=== PATIENT | male | born 1935 | race Caucasian/White ===

== ENCOUNTER 2019-04-17 04:55 | Inpatient (IN) | payer OTHER ==
[~2019-04-17] VITALS: Ht 177.8 cm; Wt 74.4 kg
[2019-04-17 05:01] VITALS: BP_SYST 136
[2019-04-17] MEDS ORDERED: PANT20TA2 PO (05:17)
[2019-04-17] MEDS ORDERED: OMEP20CA10 PO (05:17)
[2019-04-17] MEDS ORDERED: HYDR-4273 PO (05:17)
[2019-04-17] MEDS ORDERED: TRAM-350 PO (05:17)
[2019-04-17] MEDS ORDERED: TAMS-11 PO (05:17)
[2019-04-17] MEDS ORDERED: NEU300 PO (05:17)
[2019-04-17] MEDS ORDERED: INSNLG7030 SUBCUT (05:17)
[2019-04-17 06:07] LABS: BASOPHILS # (AUTO) 0.1 K/uL (0.0-0.2); BASOPHILS % (AUTO) 0.6 % (0.0-2.0); EOSINOPHILS % (AUTO) 0.1 % (0.0-4.0); HEMATOCRIT 48.4 % (36-54); HEMOGLOBIN 16.7 g/dL (14.0-18.0); LYMPHOCYTES # (AUTO) 1.4 K/uL (1.0-5.5); LYMPHOCYTES % (AUTO) 9.3 % (20.5-51.5); MEAN CORPUSCULAR HEMOGLOBIN 32 pg (27-31); MEAN CORPUSCULAR HGB CONC 34 % (32-36); MEAN CORPUSCULAR VOLUME 93 fL (79.0-98.0); MONOCYTES # (AUTO) 1.2 K/uL (0.0-1.0); MONOCYTES % (AUTO) 8.4 % (1.7-9.3); NEUTROPHILS % (AUTO) 81.6 % (40.0-70.0); PLATELET COUNT (AUTO) 256 K/uL (130-430); RED BLOOD CELL COUNT(AUTO) 5.24 MIL/uL (4.2-6.2); RED CELL DISTRIBUTION WIDTH 14.8 % (9.0-15.0); WHITE BLOOD COUNT (AUTO) 14.7 K/uL (4.8-10.8)
[2019-04-17] MEDS ORDERED: MORPHINE 2 MG/ML INJ. SYRINGE IVP ONE (06:30)
[2019-04-17 06:32] LABS: ANION GAP 12 (5-15); CALCIUM 8.9 mg/dL (8.4-11.0); CHLORIDE 98 mmol/L (98-107); CREATININE 0.86 mg/dL (0.55-1.30); GLUCOSE 291 mg/dL (70-99); POTASSIUM 4.4 mmol/L (3.5-5.1); SODIUM SERUM 134 mmol/L (136-145); UREA NITROGEN, BLOOD 15 mg/dL (8-21)
[2019-04-17 06:41] LABS: ALANINE AMINOTRANSFERASE 38 U/L (12-78); ALBUMIN 2.7 g/dL (3.4-4.8); ASPARTATE AMINOTRANSFERASE 33 U/L (10-37); TOTAL BILIRUBIN 1.7 mg/dL (0.0-1.0)
[2019-04-17 07:35] LABS: BILIRUBIN,URINE NEGATIVE (NEGATIVE); BLOOD, URINE TRACE (NEGATIVE); CLARITY/URINE CLEAR (CLEAR); COLOR,URINE YELLOW (YELLOW); GLUCOSE,URINE 3+ (NEGATIVE); KETONES,URINE 2+ (NEGATIVE); LEUKOCYTE ESTERASE ,URINE NEGATIVE (NEGATIVE); NITRITE, URINE POSITIVE (NEGATIVE); PROTEIN URINE NEGATIVE (NEGATIVE); UROBILINOGEN,URINE 0.2 (0.2-1.0)
[2019-04-17 07:46] LABS: BACTERIA,URINE MANY /HPF (None Seen)
[2019-04-17] MEDS ORDERED: cefTRIAXone 1 GM IVPB PREMIX 50 ML IV ONE (08:00)
[2019-04-17] MEDS ORDERED: VANCOMYCIN HCL 1,000 MG in NS 250 ML IV ONE (08:00)
[2019-04-17] MEDS ORDERED: NACL 0.9% 1,000 ML IV ONE ×2 (08:00→09:45)
[2019-04-17] MEDS ORDERED: LORazepam 2 MG/ML VIAL IVP ONE (08:15)
[2019-04-17] MEDS ORDERED: HALOPERIDOL LACTATE 5 MG/ML VIAL IM ONE (08:30)
[2019-04-17] MEDS ORDERED: LORazepam 2 MG/ML VIAL (FOR ER USE) ONE (08:39)
[2019-04-17] MEDS ORDERED: TRAM50TA2 PO (08:48)
[2019-04-17] MEDS ORDERED: CYCL-10 PO (08:48)
[2019-04-17] MEDS ORDERED: cefTRIAXone 1 GM IVPB PREMIX 50 ML IV SCH (09:00)
[2019-04-17] MEDS ORDERED: VANCOMYCIN HCL 1000 MG/VIAL IV ONE (09:04)
[2019-04-17] MEDS ORDERED: IPRATROPIUM/ALBUTEROL SULFATE 3 ML AMPUL.NEB (DUONEB) INH PRN (09:15)
[2019-04-17] MEDS ORDERED: ONDANSETRON HCL 4 MG/2 ML VIAL IVP PRN (09:15)
[2019-04-17 09:24] LABS: CHOLESTEROL 123 mg/dL (<200); HDL CHOLESTEROL 18 mg/dL (>45); LDL CHOLESTEROL 86 mg/dL (<100); TRIGLYCERIDES 109 mg/dL (30-150)
[2019-04-17] MEDS ORDERED: DEXTROSE 50%-WATER 50 ML DISP.SYRIN IVP PRN (09:30)
[2019-04-17] MEDS ORDERED: D5W 1,000 ML IV PRN (09:30)
[2019-04-17] MEDS ORDERED: GLUCOSE 15 GM GEL (in 37.5 GM TUBE) PO PRN (09:30)
[2019-04-17] MEDS ORDERED: HALOPERIDOL LACTATE 5 MG/ML VIAL IM PRN (09:30)
[2019-04-17] MEDS ORDERED: TAMSULOSIN HCL 0.4 MG CAP PO ONE (10:00)
[2019-04-17] MEDS ORDERED: PANTOPRAZOLE SODIUM 40 MG TAB PO ONE (10:00)
[2019-04-17 10:12] VITALS: BP_SYST 137
[2019-04-17] MEDS ORDERED: ENOXAPARIN SODIUM 40 MG/0.4 ML SYRINGE SUBCUT ONE (11:00)
[2019-04-17] MEDS: AZITHROMYCIN 250 MG in NS 250 ML IV SCH (11:17)
[2019-04-17] MEDS: INSULIN REGULAR, HUMAN 100 UNITS/ML, 10 ML VIAL (humuLIN R) SUBCUT PRN ×3 (12:19→20:35)
[2019-04-17 12:30] VITALS: BP_SYST 130
[2019-04-17] MEDS: NACL 0.9% 1,000 ML IV SCH ×2 (13:57→23:29)
[2019-04-17 16:10] VITALS: BP_SYST 134
[2019-04-17] MEDS: traMADol HCL HCL 50 MG TABLET (ULTRAM) PO PRN (18:38)
[2019-04-17 20:21] VITALS: BP_SYST 121
[2019-04-17] MEDS: CYCLOBENZAPRINE HCL 10 MG TABLET (FLEXERIL) PO SCH (20:28)
[2019-04-17] MEDS: GABAPENTIN 300 MG CAPSULE PO SCH (20:28)
[2019-04-17] MEDS: INSULIN Aspart Prota/Aspar MIX 70-30, 100 UNITS/ML, 10 ML VIAL SUBCUT SCH (20:36)
[2019-04-18 00:26] VITALS: BP_SYST 121
[2019-04-18] MEDS: INSULIN REGULAR, HUMAN 100 UNITS/ML, 10 ML VIAL (humuLIN R) SUBCUT PRN (05:22)
[2019-04-18 06:14] LABS: ALANINE AMINOTRANSFERASE 28 U/L (12-78); ALBUMIN 2.2 g/dL (3.4-4.8); ANION GAP 9 (5-15); ASPARTATE AMINOTRANSFERASE 26 U/L (10-37); CHLORIDE 103 mmol/L (98-107); CREATININE 0.61 mg/dL (0.55-1.30); GLUCOSE 220 mg/dL (70-99); POTASSIUM 3.5 mmol/L (3.5-5.1); SODIUM SERUM 135 mmol/L (136-145); TOTAL BILIRUBIN 1.5 mg/dL (0.0-1.0); UREA NITROGEN, BLOOD 9 mg/dL (8-21)
[2019-04-18 06:16] LABS: BASOPHILS % (AUTO) 0.3 % (0.0-2.0); EOSINOPHILS # (AUTO) 0.1 K/uL (0.0-0.4); EOSINOPHILS % (AUTO) 0.7 % (0.0-4.0); HEMATOCRIT 44.5 % (36-54); HEMOGLOBIN 15.4 g/dL (14.0-18.0); LYMPHOCYTES # (AUTO) 1.2 K/uL (1.0-5.5); LYMPHOCYTES % (AUTO) 14.1 % (20.5-51.5); MEAN CORPUSCULAR HEMOGLOBIN 32 pg (27-31); MEAN CORPUSCULAR HGB CONC 35 % (32-36); MEAN CORPUSCULAR VOLUME 93 fL (79.0-98.0); MONOCYTES # (AUTO) 0.9 K/uL (0.0-1.0); MONOCYTES % (AUTO) 10.8 % (1.7-9.3); NEUTROPHILS # (AUTO) 6.4 K/uL (1.8-7.7); NEUTROPHILS % (AUTO) 74.1 % (40.0-70.0); PLATELET COUNT (AUTO) 283 K/uL (130-430); RED BLOOD CELL COUNT(AUTO) 4.81 MIL/uL (4.2-6.2); RED CELL DISTRIBUTION WIDTH 15.1 % (9.0-15.0)
[2019-04-18 06:59] LABS: WHITE BLOOD COUNT (AUTO) 8.7 K/uL (4.8-10.8)
[2019-04-18 08:00] VITALS: BP_SYST 143
[2019-04-18] MEDS: INSULIN Aspart Prota/Aspar MIX 70-30, 100 UNITS/ML, 10 ML VIAL SUBCUT SCH ×2 (08:35→20:48)
[2019-04-18] MEDS: TAMSULOSIN HCL 0.4 MG CAP PO SCH (08:41)
[2019-04-18] MEDS: PANTOPRAZOLE SODIUM 40 MG TAB PO SCH (08:41)
[2019-04-18] MEDS: NACL 0.9% 1,000 ML IV SCH ×2 (08:42→19:06)
[2019-04-18] MEDS: cefTRIAXone 1 GM IVPB PREMIX 50 ML IV SCH (08:42)
[2019-04-18] MEDS ORDERED: OMEPRAZOLE 20 MG CAPSULE.DR (PriLOSEC) PO SCH (09:00)
[2019-04-18] MEDS ORDERED: ENOXAPARIN SODIUM 40 MG/0.4 ML SYRINGE SUBCUT SCH (09:00)
[2019-04-18] MEDS: AZITHROMYCIN 250 MG in NS 250 ML IV SCH (09:59)
[2019-04-18 12:20] VITALS: BP_SYST 130
[2019-04-18] MEDS ORDERED: IOHEXOL 350 mgI/mL, 150 ML INFUS..BTL IV ONE (12:59)
[2019-04-18] MEDS: traMADol HCL HCL 50 MG TABLET (ULTRAM) PO PRN (14:49)
[2019-04-18] MEDS ORDERED: *HEPARIN PER PHARMACY XX ONE (16:00)
[2019-04-18] MEDS ORDERED: HEPARIN SODIUM,PORCINE 5000 UNITS/ML VIAL IVP ONE (16:30)
[2019-04-18] MEDS ORDERED: HEPARIN SODIUM,PORCINE 2000 UNITS/0.4 ML BOLUS IVP PRN (16:30)
[2019-04-18] MEDS ORDERED: HEPARIN 25,000 UNITS in 250 ML PREMIX IV PRN (16:30)
[2019-04-18] MEDS ORDERED: HEPARIN SODIUM,PORCINE 3000 UNITS/0.6 ML BOLUS IVP PRN (16:30)
[2019-04-18 16:40] VITALS: BP_SYST 128
[2019-04-18] MEDS ORDERED: *LOVENOX 1MG/KG Q12H/PHARMACY XX ONE (17:00)
[2019-04-18] MEDS ORDERED: ENOXAPARIN SODIUM 80 MG/0.8 ML SYRINGE SUBCUT ONE (18:00)
[2019-04-18] MEDS ORDERED: METOPROLOL TARTRATE 25 MG TABLET PO ONE (18:15)
[2019-04-18 18:47] LABS: FREE T4 (FREE THYROXINE) 0.8 ng/dL (0.6-1.6); THYROID STIMULATING HORMONE 0.34 uIu/mL (0.34-4.82)
[2019-04-18 20:00] VITALS: BP_SYST 117
[2019-04-18] MEDS: GABAPENTIN 300 MG CAPSULE PO SCH (20:37)
[2019-04-18] MEDS: CYCLOBENZAPRINE HCL 10 MG TABLET (FLEXERIL) PO SCH (20:37)
[2019-04-18 23:36] VITALS: BP_SYST 123
[2019-04-19] MEDS: NACL 0.9% 1,000 ML IV SCH ×2 (00:36→21:41)
[2019-04-19 07:33] LABS: BASOPHILS # (AUTO) 0.1 K/uL (0.0-0.2); BASOPHILS % (AUTO) 0.5 % (0.0-2.0); EOSINOPHILS % (AUTO) 0.2 % (0.0-4.0); HEMATOCRIT 48.4 % (36-54); HEMOGLOBIN 16.7 g/dL (14.0-18.0); LYMPHOCYTES # (AUTO) 1.4 K/uL (1.0-5.5); LYMPHOCYTES % (AUTO) 14.3 % (20.5-51.5); MEAN CORPUSCULAR HEMOGLOBIN 32 pg (27-31); MEAN CORPUSCULAR HGB CONC 35 % (32-36); MEAN CORPUSCULAR VOLUME 93 fL (79.0-98.0); MONOCYTES % (AUTO) 10.5 % (1.7-9.3); NEUTROPHILS # (AUTO) 7.2 K/uL (1.8-7.7); NEUTROPHILS % (AUTO) 74.5 % (40.0-70.0); PLATELET COUNT (AUTO) 284 K/uL (130-430); RED BLOOD CELL COUNT(AUTO) 5.19 MIL/uL (4.2-6.2); RED CELL DISTRIBUTION WIDTH 15.2 % (9.0-15.0); WHITE BLOOD COUNT (AUTO) 9.7 K/uL (4.8-10.8)
[2019-04-19 07:38] LABS: ALANINE AMINOTRANSFERASE 24 U/L (12-78); ALBUMIN 1.9 g/dL (3.4-4.8); ANION GAP 9 (5-15); ASPARTATE AMINOTRANSFERASE 21 U/L (10-37); CALCIUM 8.5 mg/dL (8.4-11.0); CHLORIDE 105 mmol/L (98-107); GLUCOSE 56 mg/dL (70-99); SODIUM SERUM 139 mmol/L (136-145); TOTAL BILIRUBIN 1.3 mg/dL (0.0-1.0); UREA NITROGEN, BLOOD 6 mg/dL (8-21)
[2019-04-19 08:00] VITALS: BP_SYST 124
[2019-04-19] MEDS: TAMSULOSIN HCL 0.4 MG CAP PO SCH (08:12)
[2019-04-19] MEDS: ACETAMINOPHEN 325 MG TABLET PO PRN ×2 (08:12→18:23)
[2019-04-19] MEDS: METOPROLOL TARTRATE 25 MG TABLET PO SCH ×2 (08:12→21:30)
[2019-04-19] MEDS: PANTOPRAZOLE SODIUM 40 MG TAB PO SCH (08:12)
[2019-04-19] MEDS: cefTRIAXone 1 GM IVPB PREMIX 50 ML IV SCH (08:13)
[2019-04-19] MEDS: ENOXAPARIN SODIUM 80 MG/0.8 ML SYRINGE SUBCUT SCH ×2 (08:14→21:36)
[2019-04-19] MEDS: INSULIN Aspart Prota/Aspar MIX 70-30, 100 UNITS/ML, 10 ML VIAL SUBCUT SCH ×2 (08:27→21:00)
[2019-04-19] MEDS ORDERED: POTASSIUM CHLORIDE 20 MEQ TAB.PRT.SR PO ONE (09:00)
[2019-04-19] MEDS: AZITHROMYCIN 250 MG in NS 250 ML IV SCH (10:07)
[2019-04-19] MEDS: INSULIN REGULAR, HUMAN 100 UNITS/ML, 10 ML VIAL (humuLIN R) SUBCUT PRN ×3 (11:50→21:38)
[2019-04-19 12:35] VITALS: BP_SYST 95
[2019-04-19 16:17] VITALS: BP_SYST 98
[2019-04-19 20:00] VITALS: BP_SYST 130
[2019-04-19] MEDS: CYCLOBENZAPRINE HCL 10 MG TABLET (FLEXERIL) PO SCH (21:29)
[2019-04-19] MEDS: POTASSIUM CHLORIDE 20 MEQ TAB.PRT.SR PO SCH (21:31)
[2019-04-19] MEDS: GABAPENTIN 300 MG CAPSULE PO SCH (21:40)
[2019-04-20 00:24] VITALS: BP_SYST 132
[2019-04-20 06:01] LABS: BASOPHILS # (AUTO) 0.1 K/uL (0.0-0.2); BASOPHILS % (AUTO) 0.8 % (0.0-2.0); EOSINOPHILS # (AUTO) 0.1 K/uL (0.0-0.4); EOSINOPHILS % (AUTO) 1.8 % (0.0-4.0); HEMATOCRIT 46.3 % (36-54); HEMOGLOBIN 16.1 g/dL (14.0-18.0); LYMPHOCYTES # (AUTO) 1.5 K/uL (1.0-5.5); LYMPHOCYTES % (AUTO) 17.5 % (20.5-51.5); MEAN CORPUSCULAR HEMOGLOBIN 32 pg (27-31); MEAN CORPUSCULAR HGB CONC 35 % (32-36); MEAN CORPUSCULAR VOLUME 93 fL (79.0-98.0); MONOCYTES # (AUTO) 0.7 K/uL (0.0-1.0); MONOCYTES % (AUTO) 8.2 % (1.7-9.3); NEUTROPHILS % (AUTO) 71.7 % (40.0-70.0); PLATELET COUNT (AUTO) 314 K/uL (130-430); RED BLOOD CELL COUNT(AUTO) 4.99 MIL/uL (4.2-6.2); RED CELL DISTRIBUTION WIDTH 15.1 % (9.0-15.0); WHITE BLOOD COUNT (AUTO) 8.4 K/uL (4.8-10.8)
[2019-04-20] MEDS: INSULIN REGULAR, HUMAN 100 UNITS/ML, 10 ML VIAL (humuLIN R) SUBCUT PRN (06:23)
[2019-04-20 06:48] LABS: ALANINE AMINOTRANSFERASE 26 U/L (12-78); ALBUMIN 2.2 g/dL (3.4-4.8); ASPARTATE AMINOTRANSFERASE 27 U/L (10-37); CALCIUM 8.6 mg/dL (8.4-11.0); CHLORIDE 104 mmol/L (98-107); CREATININE 0.74 mg/dL (0.55-1.30); GLUCOSE 176 mg/dL (70-99); POTASSIUM 3.6 mmol/L (3.5-5.1); SODIUM SERUM 140 mmol/L (136-145); TOTAL BILIRUBIN 1.6 mg/dL (0.0-1.0); UREA NITROGEN, BLOOD 9 mg/dL (8-21)
[2019-04-20 07:00] LABS: ANION GAP 9 (5-15)
[2019-04-20 07:54] VITALS: BP_SYST 143
[2019-04-20] MEDS: METOPROLOL TARTRATE 25 MG TABLET PO SCH (08:25)
[2019-04-20] MEDS: PANTOPRAZOLE SODIUM 40 MG TAB PO SCH (08:25)
[2019-04-20] MEDS: TAMSULOSIN HCL 0.4 MG CAP PO SCH (08:25)
[2019-04-20] MEDS: POTASSIUM CHLORIDE 20 MEQ TAB.PRT.SR PO SCH (08:25)
[2019-04-20] MEDS: cefTRIAXone 1 GM IVPB PREMIX 50 ML IV SCH (08:30)
[2019-04-20] MEDS: INSULIN Aspart Prota/Aspar MIX 70-30, 100 UNITS/ML, 10 ML VIAL SUBCUT SCH (08:35)
[2019-04-20] MEDS: ENOXAPARIN SODIUM 80 MG/0.8 ML SYRINGE SUBCUT SCH (08:36)
[2019-04-20] MEDS: AZITHROMYCIN 250 MG in NS 250 ML IV SCH (09:14)
[2019-04-20] MEDS ORDERED: MAG-AL HYDROX/SIMETH 30 ML UDC PO ONE (10:30)
[2019-04-20 13:08] VITALS: BP_SYST 114
[2019-04-20 14:46] VITALS: BP_SYST 114
[2019-04-20] MEDS ORDERED: APIXABAN 2.5 MG TABLET PO SCH (21:00)
== END 2019-04-20 15:35 | DRG 871 ==
LOC: SED 04:55 → STU 08:13
PROVIDERS: ADMIT Internal Medicine; ATTEND Internal Medicine
DX: A41.9 Sepsis, unspecified organism (principal); I26.99 Other pulmonary embolism without acute cor pulmonale; J18.9 Pneumonia, unspecified organism; J98.11 Atelectasis; N39.0 Urinary tract infection, site not specified; F41.1 Generalized anxiety disorder; E07.9 Disorder of thyroid, unspecified; E11.40 Type 2 diabetes mellitus with diabetic neuropathy, unspecified; F32.9 Major depressive disorder, single episode, unspecified; R27.0 Ataxia, unspecified; I10 Essential (primary) hypertension; G89.29 Other chronic pain; I48.2 Chronic atrial fibrillation; I87.8 Other specified disorders of veins; N40.1 Benign prostatic hyperplasia with lower urinary tract symptoms; E86.0 Dehydration; F03.90 Unspecified dementia, unspecified severity, without behavioral disturbance, psychotic disturbance, mood disturbance, and anxiety; F60.9 Personality disorder, unspecified; E87.6 Hypokalemia; J40 Bronchitis, not specified as acute or chronic; K21.9 Gastro-esophageal reflux disease without esophagitis; K80.20 Calculus of gallbladder without cholecystitis without obstruction; W01.0XXA Fall on same level from slipping, tripping and stumbling without subsequent striking against object, initial encounter; Y93.89 Activity, other specified; Y92.89 Other specified places as the place of occurrence of the external cause; Y99.8 Other external cause status; Z79.4 Long term (current) use of insulin; Z87.891 Personal history of nicotine dependence
CPT/HCPCS: 36415; 70450-TC; 71045; 71250-TC; 71275; 72125-TC; 72131; 80053; 80061; 81000-TC; 82962; 83036; 83605; 84439; 84443-TC; 84484; 85025; 85379; 87040-TC; 87086; 87186-TC; 93005; 93306; 93880; 96365; 96375; 97110-GP; 97116-GP; 97530-GP; 99285; G0378; J0456; J0696; J1630; J1650; J1815; J2060; J2270; J3370; J7030; J7050; Q9967